=== PATIENT | male | born 1965 | race Two or more races ===

== ENCOUNTER 2019-10-09 05:53 | Emergency (ER) | payer MEDICAID, OTHER ==
[~2019-10-09] VITALS: Ht 165.1 cm; Wt 81.6 kg
[2019-10-09 06:05] VITALS: BP 209/116
--- NOTE | 2019-10-09 06:05 | NUR ---
ED Nurse Note: Pt walked into ED from home for c/o intermittent chest pain onset a couple months ago, but became worse yesterday. Pt states pain is pressure like in nature and radiates to L arm. Pt has elevated BP upon triage at 209/116. Pt denies headache, n/v or blurry vision. Pt is aaox4, breathing is normal and unlabored. Pt connected to conveyor monitor. EKG bedside.
[2019-10-09] MEDS ORDERED: Nitroglycerin Subl 0.4mg tab SL PRN (06:30)
[2019-10-09 06:33] LABS: EOSINOPHILS % (AUTO) 0.1 % (0.0-3.0); HEMATOCRIT 48.6 % (42.0-52.0); HEMOGLOBIN 17.4 G/DL (14.2-18.0); LYMPHOCYTES % (AUTO) 15.1 % (20.0-45.0); MEAN CORPUSCULAR VOLUME 83 FL (80-99); MONOCYTES % (AUTO) 5.4 % (1.0-10.0); NEUTROPHILS % (AUTO) 78.4 % (45.0-75.0); PLATELET COUNT 327 K/UL (150-450); RED BLOOD COUNT 5.84 M/UL (4.70-6.10); RED CELL DISTRIBUTION WIDTH 11.1 % (11.6-14.8)
[2019-10-09] MEDS ORDERED: Labetalol 5mg/ml 20ml vial IV ONE (06:45)
[2019-10-09 06:49] LABS: ANION GAP 15 mmol/L (5-15); BLOOD UREA NITROGEN 8 mg/dL (7-18); CARBON DIOXIDE 25 MMOL/L (21-32); CHLORIDE 98 MMOL/L (98-107); POTASSIUM 3.5 MMOL/L (3.5-5.1); SODIUM 137 MMOL/L (136-145)
--- NOTE | 2019-10-09 06:50 | Emergency Room Report ---
History of Present Illness General Chief Complaint: Hypertension Source: Patient Present Illness HPI Patient is a 54-year-old male who presents after increased left-sided chest pain onset last night. He reports having no prior smoking history. Denies any cough. He had not been having any fever. Reports having constant pain to the left side of his chest. Does not radiate. He denies any prior history of smoking. Denies hypertension. He did not take medications regularly. Occasionally drinks alcohol at parties but denies any regular alcohol use. COVID-19 risk:Contact w/high r: No COVID-19 risk:Travel to affect: No Has patient experienced bowers: No Allergies: Coded Allergies: No Known Allergies (Unverified , 10/09/19) Patient History Past Medical History: see triage record Reviewed Nursing Documentation: PMH: Agreed; PSxH: Agreed Nursing Documentation-PMH Past Medical History: No Stated History Review of Systems All Other Systems: negative except mentioned in HPI Physical Exam Vital Signs Date Time Temp Pulse Resp B/P (MAP) Pulse Ox O2 Delivery O2 Flow Rate FiO2 10/09/19 05:59 98.4 114 18 209/116 (147) 95 Room Air Sp02 EP Interpretation: reviewed, normal General Appearance: normal inspection, well appearing, no apparent distress, alert, GCS 15 Head: atraumatic ENT: normal ENT inspection, hearing grossly normal, normal voice Neck: normal inspection, full range of motion, supple, no bony tend Respiratory: normal inspection, lungs clear, normal breath sounds, no respiratory distress, no retraction, no wheezing Cardiovascular #1: no edema, tachycardia Gastrointestinal: normal inspection, normal bowel sounds, non tender, soft, no guarding, no hernia Genitourinary: no CVA tenderness Musculoskeletal: normal inspection, back normal, normal range of motion Neurologic: alert, motor strength/tone normal, production superintendent III-XII nml as tested, responsive, speech normal, normal inspection Psychiatric: normal inspection, judgement/insight normal, mood/affect normal Medical Decision Making Diagnostic Impression: Primary Impression: Chest pain Additional Impressions: Uncontrolled hypertension STEMI (ST elevation myocardial infarction) ER Course Patient presented for chest pain. Differential diagnosis included but was not limited to acute coronary syndrome, coronavirus, hypertensive crisis, pulmonary embolism, pneumonia, aortic dissection, shingles, pneumothorax, aortic dissection, esophageal rupture, pericarditis. EKG showed sinus tachycardia with a rate of [address] changes in the anterior leads. EKG was sent to [facility] [place]. CXR showed cardiomegaly with normal mediastinum with some pulmonary edema. Patient was given aspirin as well as nitroglycerin. He was given IV heparin bolus and none was contacted. Patient was discussed with Dr. Wiley who accepted patient as transfer to [facility] [place]. Patient was given labetalol due to rapid heartbeat and markedly elevated blood pressure. EKG Diagnostic Results Rate: tachycardiac Last Vital Signs Date Time Temp Pulse Resp B/P (MAP) Pulse Ox O2 Delivery O2 Flow Rate FiO2 10/09/19 06:38 209/116 10/09/19 06:05 98.4 114 18 96 Room Air Status: improved Disposition: ER [facility] Condition: Stable Referrals: [facility],REFERRING (PCP) Buck Lowery MD Oct 09, 2019 06:50
[2019-10-09 06:59] LABS: ALANINE AMINOTRANSFERASE 52 U/L (12-78); ALBUMIN 4.4 G/DL (3.4-5.0); ALBUMIN/GLOBULIN RATIO 1.1 (1.0-2.7); ALKALINE PHOSPHATASE 101 U/L (46-116); ASPARTATE AMINO TRANSFERASE 40 U/L (15-37); BILIRUBIN,TOTAL 0.4 MG/DL (0.2-1.0)
[2019-10-09 07:00] VITALS: BP 161/109
[2019-10-09] MEDS ORDERED: Heparin 5000 units/ml inj IV ONE (07:00)
--- NOTE | 2019-10-09 07:00 | NUR ---
ED Nurse Note: Report given to JUVENTINO Wade at [facility].
[2019-10-09 07:10] VITALS: BP 165/104
--- NOTE | 2019-10-09 07:10 | NUR ---
ED Nurse Note: Pt being transported to [facility] via [facility]. Pt is stable for transport via [facility] per [facility]. Pt is in no acute distress at this time and denies any symptoms other than the presenting chest pain. Pt is aaox4, breathing is normal and unlabored. Pt HR in 90's and BP has decreased since triage. Pt is able to ambulate with steady gait to [facility]. 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 Report given to [facility]. Pt belongings sent with pt.
--- NOTE | 2019-10-09 12:48 | Diagnostic Imaging Report ---
Indication: Dyspnea Comparison: None A single view chest radiograph was obtained. Findings: Cardiomediastinal appearance is within normal limits for age. The lungs are clear. Pulmonary vascularity is appropriate. The diaphragmatic contour is smooth and costophrenic angles are sharp. No pleural effusions are identified. The bones are unremarkable. Impression: No acute findings
== END 2019-10-09 07:10 | disposition short-term general hospital (02) ==
LOC: EMR 06:40
DX: I21.3 ST elevation (STEMI) myocardial infarction of unspecified site (principal); R07.9 Chest pain, unspecified; I10 Essential (primary) hypertension; R00.0 Tachycardia, unspecified; I51.7 Cardiomegaly
CPT/HCPCS: 36415; 71045; 80053; 80307; 83735; 83880; 84484; 85025; 93005; 96374; 96375; J1644; Z7502; 99284